=== PATIENT | female | born 1960 | race Caucasian/White ===

== ENCOUNTER 2017-04-28 11:21 | Emergency (ER) | payer OTHER ==
[~2017-04-28] VITALS: Ht 167.6 cm; Wt 81.6 kg
[2017-04-28 11:58] VITALS: BP 106/70
[2017-04-28] MEDS ORDERED: KETOROLAC TROMETH 60MG/2ML VIAL IM ONE (12:00)
== END 2017-04-28 12:22 | disposition home or self-care (01) ==
LOC: ER 11:21
DX: K08.89 Other specified disorders of teeth and supporting structures (principal)
CPT/HCPCS: 96372; 99283; J1885

== ENCOUNTER 2018-06-24 19:48 | Emergency (ER) | payer OTHER ==
[~2018-06-24] VITALS: Ht 167.6 cm; Wt 81.6 kg
[2018-06-24 19:56] VITALS: BP 150/55
[2018-06-24] MEDS ORDERED: KETOROLAC TROMETH 60MG/2ML VIAL IM ONE (21:15)
== END 2018-06-24 22:01 | disposition home or self-care (01) ==
LOC: ER 19:48
DX: B37.2 Candidiasis of skin and nail (principal); Z88.1 Allergy status to other antibiotic agents
CPT/HCPCS: 96372; 99283; J1885

== ENCOUNTER 2019-12-15 19:50 | Emergency (ER) | payer OTHER ==
[~2019-12-15] VITALS: Ht 167.6 cm; Wt 81.6 kg
[2019-12-15] MEDS ORDERED: FLUORESCEIN SOD 1 MG TEST STRIP RIGHTEYE ONE (21:15)
[2019-12-15] MEDS ORDERED: TETRACAINE HCL 0.5% OPTH(EYE) SOLN 4ML RIGHTEYE ONE (21:15)
[2019-12-15] MEDS ORDERED: KETOROLAC TROMETH 60MG/2ML VIAL IM ONE (21:30)
[2019-12-15] MEDS ORDERED: ONDANSETRON ODT 4 MG TAB PO ONE (21:30)
[2019-12-15 23:14] VITALS: BP 138/63
== END 2019-12-16 00:05 | disposition home or self-care (01) ==
LOC: ER 19:52
DX: H40.051 Ocular hypertension, right eye (principal); Z88.8 Allergy status to other drugs, medicaments and biological substances
CPT/HCPCS: 96372; 99283; J1885; Q0162

== ENCOUNTER 2021-07-13 19:07 | Emergency (ER) | payer OTHER ==
[~2021-07-13] VITALS: Ht 167.6 cm; Wt 81.6 kg
[2021-07-13] MEDS ORDERED: PERCOT PO (20:43)
[2021-07-14 01:00] VITALS: BP 136/84
== END 2021-07-14 01:05 | disposition home or self-care (01) ==
LOC: ER 19:09
DX: S86.911A Strain of unspecified muscle(s) and tendon(s) at lower leg level, right leg, initial encounter (principal); Z88.8 Allergy status to other drugs, medicaments and biological substances; W10.9XXA Fall (on) (from) unspecified stairs and steps, initial encounter; Y93.89 Activity, other specified; Y92.89 Other specified places as the place of occurrence of the external cause; Y99.8 Other external cause status
CPT/HCPCS: 29505; 73562

== ENCOUNTER 2022-09-01 16:46 | Emergency (ER) | payer OTHER ==
[~2022-09-01] VITALS: Ht 167.6 cm; Wt 79.7 kg
[~2022-09-01 16:46] MED LIST: PERCOT PO
[2022-09-01 17:07] VITALS: BP 155/91
[2022-09-01] MEDS ORDERED: TETRACAINE HCL 0.5% OPTH(EYE) SOLN 4ML LEFTEYE ONE (17:30)
[2022-09-01] MEDS ORDERED: FAMC500T12 PO (17:32)
[2022-09-01] MEDS ORDERED: AZIT4SOL LEFTEYE (17:32)
[2022-09-01] MEDS ORDERED: IBUP600T27 PO (17:32)
[2022-09-01] MEDS ORDERED: HYDR-4902 PO (17:32)
== END 2022-09-01 17:52 | disposition home or self-care (01) ==
LOC: ER 16:48
DX: S05.02XA Injury of conjunctiva and corneal abrasion without foreign body, left eye, initial encounter (principal); H10.9 Unspecified conjunctivitis; F41.9 Anxiety disorder, unspecified; X58.XXXA Exposure to other specified factors, initial encounter; Y93.89 Activity, other specified; Y92.89 Other specified places as the place of occurrence of the external cause; Y99.8 Other external cause status

== ENCOUNTER 2022-11-13 15:39 | Emergency (ER) | payer OTHER ==
[~2022-11-13] VITALS: Ht 165.1 cm; Wt 86.5 kg
[~2022-11-13 15:39] MED LIST changes: +AZIT4SOL LEFTEYE; +FAMC500T12 PO; +HYDR-4902 PO; +IBUP600T27 PO
[2022-11-13 18:59] VITALS: BP 173/89
== END 2022-11-13 19:02 | disposition home or self-care (01) ==
LOC: ER 15:39
DX: S09.8XXA Other specified injuries of head, initial encounter (principal); F07.81 Postconcussional syndrome; F41.9 Anxiety disorder, unspecified; Z79.899 Other long term (current) drug therapy
CPT/HCPCS: 70450; 82962; 93005